=== PATIENT | female | born 1975 | race Caucasian/White ===

== ENCOUNTER 2025-05-15 14:37 | Emergency (ER) | payer OTHER ==
[~2025-05-15] VITALS: Ht 162.6 cm; Wt 65.8 kg
[2025-05-15] MEDS ORDERED: ONDANSETRON HCL/PF 4 MG/2 ML VIAL ONE (15:36)
[2025-05-15] MEDS ORDERED: MECLIZINE HCL 25 MG TABLET ONE (15:36)
[2025-05-15 15:51] LABS: PLATELET COUNT (AUTO) 344 K/uL (150-450); RED BLOOD CELL COUNT(AUTO) 4.35 MIL/uL (4.0-5.2); RED CELL DISTRIBUTION WIDTH 14.6 % (11.5-15.0); WHITE BLOOD COUNT (AUTO) 10.2 K/uL (4.3-11.0)
[2025-05-15] MEDS: IV NS 0.9% 1,000 ML BAG IV ONE (15:52)
[2025-05-15] MEDS: ONDANSETRON HCL/PF 4 MG/2 ML VIAL IVP ONE (15:53)
[2025-05-15] MEDS: MECLIZINE HCL 25 MG TABLET PO ONE (15:53)
[2025-05-15 16:13] LABS: CALCIUM, SERUM 9.4 mg/dL (8.5-10.1); CREATININE 0.6 mg/dL (0.6-1.3); SODIUM SERUM 141.0 mmol/L (136-145); UREA NITROGEN, BLOOD 7.0 mg/dL (7-18)
[2025-05-15 16:16] LABS: ASPARTATE AMINOTRANSFERASE 9 U/L (15-37); TOTAL PROTEIN, SERUM 7.4 g/dL (6.4-8.2)
[2025-05-15 16:26] LABS: CREATINE KINASE, TOTAL 42.0 U/L (26-192)
[2025-05-15 16:27] LABS: ASPARTATE AMINOTRANSFERASE 13.0 U/L (15-37); TOTAL PROTEIN, SERUM 7.5 g/dL (6.4-8.2)
[2025-05-15 16:31] LABS: APPEARANCE,URINE CLEAR (CLEAR); BLOOD, URINE NEGATIVE Ery/uL (NEGATIVE); LEUKOCYTE ESTERASE ,URINE NEGATIVE (NEGATIVE); NITRITE, URINE NEGATIVE (NEGATIVE); UGLUCOSE NEGATIVE (NEGATIVE)
[2025-05-15 16:33] LABS: PREGNANCY TEST URINE QUAL NEGATIVE (NEGATIVE)
[2025-05-15] MEDS ORDERED: MECL-159 PO (16:54)
[2025-05-15] MEDS ORDERED: ONDA4TAB5 PO (16:54)
[2025-05-15 16:59] LABS: ADD URINE CULTURE NO; SQUAMOUS EPITHELIAL CELL,UR 0-2 /HPF (None Seen)
[2025-05-15 18:00] VITALS: BP 121/84; TEMP 98; O2SAT 98
== END 2025-05-15 18:01 | disposition home or self-care (01) ==
LOC: ER 14:48
DX: R53.1 Weakness (principal); R42 Dizziness and giddiness; R11.0 Nausea
CPT/HCPCS: 99285; 96374; 96361; 93005; 85025; 82550; 84703; 85652; 81001; 36415; 84443; 80053; 84484; 82962; J8597; J2405; J7030; 80076-TC

== ENCOUNTER 2025-05-18 16:37 | Emergency (ER) | payer OTHER ==
[~2025-05-18] VITALS: Ht 165.1 cm; Wt 59.0 kg
[~2025-05-18 16:37] MED LIST: MECL-159 PO; ONDA4TAB5 PO
[2025-05-18 17:19] LABS: PLATELET COUNT (AUTO) 374 K/uL (150-450); RED BLOOD CELL COUNT(AUTO) 4.63 MIL/uL (4.0-5.2); RED CELL DISTRIBUTION WIDTH 14.3 % (11.5-15.0); WHITE BLOOD COUNT (AUTO) 8.6 K/uL (4.3-11.0)
[2025-05-18 17:34] LABS: CALCIUM, SERUM 9.1 mg/dL (8.5-10.1); CREATININE 0.7 mg/dL (0.6-1.3); SODIUM SERUM 140.0 mmol/L (136-145); UREA NITROGEN, BLOOD 14.0 mg/dL (7-18)
[2025-05-18 17:51] LABS: INR 1.1 (0.91-1.10)
[2025-05-18 19:09] VITALS: BP 125/75; TEMP 98.5; O2SAT 98
[2025-05-18 19:30] LABS: APPEARANCE,URINE BLOODY (CLEAR)
== END 2025-05-18 19:10 | disposition home or self-care (01) ==
LOC: ER 16:42
DX: N93.9 Abnormal uterine and vaginal bleeding, unspecified (principal); R10.2 Pelvic and perineal pain
CPT/HCPCS: 36415; 76856-TC; 80048-TC; 81001; 85025-TC; 85730-TC